=== PATIENT | male | born 1970 | race Two or more races ===

== ENCOUNTER 2021-02-07 10:05 | Day surgery (SDC) | payer OTHER ==
[~2021-02-07] VITALS: Ht 172.7 cm; Wt 85.3 kg
[2021-02-07] MEDS ORDERED: LIDOCAINE 2% 100 MG/5 ML UJET TP ONE ×2 (12:40→13:05)
[2021-02-07] MEDS ORDERED: fentaNYL citrate 0.05 MG/ML VIAL ONE (12:40)
[2021-02-07] MEDS ORDERED: fentaNYL citrate 0.05 MG/ML VIAL IVP ONE (13:05)
== END 2021-02-07 14:05 | disposition home or self-care (01) ==
LOC: MDS 10:05 → MFCC 10:06 → MDS 14:05
PROVIDERS: ATTEND Internal Medicine Gastroenterology
DX: Z12.11 Encounter for screening for malignant neoplasm of colon (principal); R14.0 Abdominal distension (gaseous); E78.5 Hyperlipidemia, unspecified; Z79.899 Other long term (current) drug therapy
CPT/HCPCS: 45378; J3010